=== PATIENT | female | born 1985 | race Hispanic/Latino ===

== ENCOUNTER 2018-12-17 01:31 | Emergency (ER) | payer SELFPAY ==
[2018-12-17 02:11] VITALS: BMI 28.1
[2018-12-17 02:14] VITALS: O2SAT 100
--- NOTE | 2018-12-17 03:27 | ED PDOC ---
HPI: Female Pain Chief Complaint (Nursing): Female Genitourinary Chief Complaint (Provider): Female Genitourinary History Per: Patient History/Exam Limitations: no limitations Onset/Duration Of Symptoms: Days (x1) Associated Symptoms: Urinary Symptoms (Hematuria and urinary frequency). denies: Fever, Nausea, Vomiting, Other (Flank pain) Additional Complaint(s): 33 years old female with no significant PMHx presents to ER complaining of dysuria, hematuria and frequency urination since yesterday afternoon. Patient reports last week she started having vaginal itchiness and irritation and states she didn't do anything until she went to clinic and was diagnosed with yeast infection. Patient was given diflucan for infection and reports she felt a little better but yesterday she started with urinary symptoms. She states she had UTI in the past and reports it feels like UTI. Patient reports she has been drinking lots of water and came to ED because she is uncomfortable. She reports associated bilateral pelvic cramping and lower back pain and slight vaginal irritation and itchiness. Patient denies fevers, nausea, vomiting, flank pain or vaginal discharge. PMD: None provided Past Medical History Reviewed: Historical Data, Nursing Documentation, Vital Signs Vital Signs: Last Vital Signs Temp 98.3 F 12/17/18 02:13 Pulse 89 12/17/18 02:13 Resp 18 12/17/18 02:13 BP 134/81 12/17/18 02:13 Pulse Ox 100 12/17/18 02:13 Primary Care Provider: Procedure,Nonphys - Medical History PMH: No Chronic Diseases - Surgical History Surgical History: No Surg Hx - Family History Family History: States: Unknown Family Hx - Allergies Allergies/Adverse Reactions: Allergies Allergy/AdvReac Type Severity Reaction Status Date / Time No Known Allergies Allergy Verified 12/17/18 02:11 Review of Systems ROS Statement: Except As Marked, All Systems Reviewed And Found Negative Constitutional: Negative for: Fever Gastrointestinal: Negative for: Nausea, Vomiting Genitourinary Female: Positive for: Dysuria, Frequency, Hematuria, Pelvic Pain (cramping), Other (Slight vaginal itchiness and irritation). Negative for: Vaginal Discharge Musculoskeletal: Negative for: Other (Flank pain) Physical Exam - Reviewed Nursing Documentation Reviewed: Yes Vital Signs Reviewed: Yes - Physical Exam Appears: Positive for: Well, No Acute Distress Head Exam: Positive for: ATRAUMATIC, NORMOCEPHALIC Skin: Positive for: Normal Color, Warm, Dry Eye Exam: Positive for: Normal appearance, EOMI, PERRL Neck: Positive for: Normal, Painless ROM, Supple Cardiovascular/Chest: Positive for: Regular Rate, Rhythm. Negative for: Murmur Respiratory: Positive for: Normal Breath Sounds. Negative for: Respiratory Distress Gastrointestinal/Abdominal: Positive for: Normal Exam, Soft, Other (Discomfort to suprapubic area) Back: Positive for: Normal Inspection. Negative for: L CVA Tenderness, R CVA Tenderness Extremity: Positive for: Normal ROM. Negative for: Pedal Edema, Swelling Neurological/Psych: Positive for: Awake, Alert, Oriented (x3) - ECG O2 Sat by Pulse Oximetry: 100 (RA) Pulse Ox Interpretation: Normal Medical Decision Making Medical Decision Making: Time: 215 Initial plan: --Urinalysis --Urine --Urine culture Scribe Attestation: Documented by Rosana Langley, acting as a scribe for Iwona Collins PA-C. Provider Scribe Attestation: All medical record entries made by the Scribe were at my direction and personally dictated by me. I have reviewed the chart and agree that the record accurately reflects my personal performance of the history, physical exam, medical decision making, and the department course for this patient. I have also personally directed, reviewed, and agree with the discharge instructions and disposition. Disposition - Disposition Forms: [employer] (Malay)
[2018-12-17 03:53] LABS: SQUAMOUS EPITHIAL 1 /hpf (0-5); URINE BACTERIA OCC (<OCC); URINE BILIRUBIN NEGATIVE (NEGATIVE); URINE BLOOD LARGE (NEGATIVE); URINE CLARITY CLOUDY (Clear); URINE COLOR YELLOW (YELLOW); URINE GLUCOSE (UA) NEG (NEGATIVE); URINE LEUKOCYTE ESTERASE LARGE Leu/uL (Negative); URINE PROTEIN 30 mg/dL (NEGATIVE); URINE UROBILINOGEN 0.2-1.0 mg/dL (0.2-1.0)
--- NOTE | 2018-12-17 03:55 | ED PDOC ---
HPI: Female Pain Time Seen by Provider: 12/17/18 03:20 Chief Complaint (Nursing): Female Genitourinary Chief Complaint (Provider): Female Genitourinary History Per: Patient History/Exam Limitations: no limitations Onset/Duration Of Symptoms: Days (x1) Associated Symptoms: Urinary Symptoms (Hematuria, dysuria and frequency urination). denies: Fever, Nausea, Vomiting Additional Complaint(s): 33 years old female with no significant PMHx presents to ER complaining of dysuria, hematuria and frequency urination since yesterday afternoon. Patient reports last week she started having vaginal itchiness and irritation and states she didn't do anything until she went to clinic and was diagnosed with yeast infection. Patient was given diflucan for yeast infection and reports she felt a little better but yesterday she started with urinary symptoms. She states she had UTI in the past and reports it feels like UTI. Patient reports she has been drinking lots of water and came to ED because she is uncomfortable. She reports associated bilateral pelvic cramping and lower back pain and slight vaginal irritation and itchiness. Patient denies fevers, nausea, vomiting, flank pain or vaginal discharge. PMD: None provided Abnormal Vaginal Bleeding: No Past Medical History Reviewed: Historical Data, Nursing Documentation, Vital Signs Vital Signs: Last Vital Signs Temp 98.3 F 12/17/18 02:13 Pulse 89 12/17/18 02:13 Resp 18 12/17/18 02:13 BP 134/81 12/17/18 02:13 Pulse Ox 100 12/17/18 03:30 Primary Care Provider: Procedure,Nonphys - Medical History PMH: No Chronic Diseases - Surgical History Surgical History: No Surg Hx - Family History Family History: States: Unknown Family Hx - Home Medications Home Medications: Ambulatory Orders Medication Instructions Recorded Ciprofloxacin HCl [Cipro] 500 mg PO Q12H #13 tablet 12/17/18 Phenazopyridine HCl [Pyridium] 200 mg PO TID #5 tablet 12/17/18 - Allergies Allergies/Adverse Reactions: Allergies Allergy/AdvReac Type Severity Reaction Status Date / Time No Known Allergies Allergy Verified 12/17/18 02:11 Review of Systems Constitutional: Negative for: Fever Gastrointestinal: Negative for: Nausea, Vomiting Genitourinary Female: Positive for: Dysuria, Frequency, Hematuria, Pelvic Pain (cramping), Other (Slight vaginal itchiness and irritation). Negative for: Vaginal Discharge Musculoskeletal: Positive for: Back Pain (lower). Negative for: Other (Flank pain) Physical Exam - Reviewed Nursing Documentation Reviewed: Yes Vital Signs Reviewed: Yes - Physical Exam Appears: Positive for: Well, No Acute Distress Head Exam: Positive for: ATRAUMATIC, NORMOCEPHALIC Skin: Positive for: Normal Color, Warm, Dry Eye Exam: Positive for: Normal appearance, EOMI, PERRL ENT: Positive for: Normal ENT Inspection Neck: Positive for: Normal, Painless ROM, Supple Cardiovascular/Chest: Positive for: Regular Rate, Rhythm. Negative for: Murmur Respiratory: Positive for: Normal Breath Sounds. Negative for: Respiratory Distress Gastrointestinal/Abdominal: Positive for: Normal Exam, Soft, Other (Discomfort to suprapubic area) Back: Positive for: Normal Inspection. Negative for: L CVA Tenderness, R CVA Tenderness Extremity: Positive for: Normal ROM. Negative for: Pedal Edema, Swelling Neurological/Psych: Positive for: Awake, Alert, Oriented (x3) - Laboratory Results Urine POC: Negative - ECG O2 Sat by Pulse Oximetry: 100 (RA) Medical Decision Making Medical Decision Making: Time: 215 Initial plan: --Urinalysis --Urine --Urine culture UA reviewed by me. + large blood, +leuks, impression: UTI. Rx given cipro and pyridium first dose in ED. Follow-up with PMD. Instructed to return to ED if she develops fever, nausea/vomiting, flank pain. Patient states understanding and agrees with plan. Scribe Attestation: Documented by Rosana Langley, acting as a scribe for Iwona Collins APN. Provider Scribe Attestation: All medical record entries made by the Scribe were at my direction and personally dictated by me. I have reviewed the chart and agree that the record accurately reflects my personal performance of the history, physical exam, medical decision making, and the department course for this patient. I have also personally directed, reviewed, and agree with the discharge instructions and disposition. Disposition - Clinical Impression Clinical Impression: UTI (urinary tract infection) - Patient ED Disposition Is Patient to be Admitted: No Counseled Patient/Family Regarding: Diagnosis, Need For Followup, Rx Given - Disposition Disposition: Routine/Home Disposition Time: 04:39 Condition: STABLE Additional Instructions: follow-up with PMD In 2-3 days. Prescriptions: Ciprofloxacin HCl [Cipro] 500 mg PO Q12H #13 tablet Phenazopyridine HCl [Pyridium] 200 mg PO TID #5 tablet Instructions: Urinary Tract Infections in Adults Forms: [employer] (Bots[place]an), [facility] School/Work Excuse Print Language: KOREAN - POA Present On Arrival: None
[2018-12-17 05:02] VITALS: BP 105/67; PULSE 68; RESP 16; TEMP 97.9
== END 2018-12-17 05:06 | disposition home or self-care (01) ==
LOC: H.ER 01:31
DX: N39.0 Urinary tract infection, site not specified (principal)